=== PATIENT | male | born 1965 | race Caucasian/White ===

== ENCOUNTER 2016-05-18 21:34 | Observation (INO) ==
[2016-05-18] MEDS ORDERED: 0.9 % Sodium Chloride 1,000 ML IVC ONE (21:52)
[2016-05-18 22:27] LABS: Basophils % 0.5 %; Eosinophils # 0.1 K/mcL (0.0-0.6); Eosinophils % 1.1 %; Hematocrit 41.9 % (37.5-50.1); Hemoglobin 14.1 g/dL (12.9-16.9); Immature Granulocytes % 0.3 % (0-4); Lymphocytes # 1.5 K/mcL (0.6-4.6); Lymphocytes % 19.1 %; Mean Corpuscular HGB Conc 33.7 g/dL (31.6-35.5); Mean Corpuscular Volume 92.1 fL (83.0-100.0); Mean Platelet Volume 11.4 fL (9.4-12.4); Monocytes # 0.6 K/mcL (0.0-1.3); Monocytes % 7.1 %; Neutrophils # 5.7 K/mcL (1.6-8.9); Platelet Count 189 K/mcL (140-400); Red Blood Count 4.55 M/mcL (4.19-5.50); Red Cell Distribution Width 12.6 % (11.5-14.5); Segmented Neutrophils % 71.9 %
[2016-05-18 22:31] LABS: INR 1.2; Prothrombin Time 12.5 Seconds (9.4-12.1)
[2016-05-18 22:34] LABS: Activated Partial Thrombo Time 28.9 Seconds (26.0-36.0)
[2016-05-18 22:40] LABS: BUN/Creatinine Ratio 22 (6-26); Blood Urea Nitrogen 17 mg/dL (8-26); Calcium 9.3 mg/dL (8.6-10.8); Carbon Dioxide 24 mEq/L (19-29); Chloride 106 mEq/L (98-109); Glucose 131 mg/dL (70-99); Osmolality,Calculated 299 (280-300); Potassium 4.1 mEq/L (3.5-4.5); Sodium 143 mEq/L (136-145); eGFR For African Americans > 60 (> 60); eGFR For Non-African Americans > 60 (> 60)
--- NOTE | 2016-05-19 00:35 | Emergency Department Note ---
Disposition Clinical Impression: Syncope Disposition: Admitted As Inpatient Referrals: Vik Marks Jr, MD [Primary Care Provider] - Forms: ED Satisfaction Letter Dizziness HPI - General Chief Complaint: ED Dizziness Stated Complaint: numbness in right side/light head ? Time Seen by Provider: 05/18/16 21:47 Source: patient, family Limitations: no limitations Nursing Notes Reviewed: Yes Vital Signs Reviewed: Yes - History of Present Illness HPI Narrative: 50-year-old male who presents with concern for syncope. He apparently was feeling quite well today and went to the gym this evening. He left the gym and went to the grocery store. He had some weakness in his upper extremities and some tingling in ultimate had a syncopal event. He does report a family history of aneurysms but has been evaluated with MRI and ruled out for aneurysms. He has mild headache at this time. He had no weakness following his syncope. He denies fever or chills. He denies sick or ill contacts. His vital signs are stable on arrival. He denied chest pain. - Related Data Allergies Allergy/AdvReac Type Severity Reaction Status Date / Time No Known Allergies Allergy Verified 05/18/16 21:45 All systems ED: reviewed and negative except as stated. Past Medical History - Past Medical History Medical history: Reports: no medical history Psychiatric history: Reports: no psych history - Social History Smoking Status: Never smoker Smokeless Tobacco Status: No Alcohol use: Reports: occasionally Drug use: Reports: none Physical Exam Alert and oriented in no acute distress Blue [place] warm and dry TMs clear bilaterally, extraocular muscle movements are normal, scleral icterus is absent Oropharynx is clear mucous members are moist Cardiovascular exam shows no murmur, rub, gallop Pulmonary exam shows clear lung sounds bilaterally no rales, rhonchi, wheezing Abdominal exam shows a soft and nontender abdomen Extremities are well perfused without clubbing, cyanosis, edema Neurologic exam shows cranial nerves II through XII grossly intact without any focal deficit - General Limitations: no limitations General appearance: alert, in no apparent distress Course Vital Signs Temperature 98.3 F 05/18/16 21:45 Pulse Rate 83 05/18/16 21:45 Respiratory Rate 16 05/18/16 21:45 Blood Pressure 148/97 05/18/16 21:45 O2 Sat by Pulse Oximetry 99 05/18/16 21:45 Temperature 98.3 F 05/18/16 21:45 Pulse Rate 83 05/18/16 21:45 Respiratory Rate 16 05/18/16 21:45 Blood Pressure 148/97 05/18/16 21:45 O2 Sat by Pulse Oximetry 99 05/18/16 21:45 Oxygen Delivery Oxygen Delivery Room Air Dizziness - MDM Narrative Medical decision making narrative: 50-year-old male with syncopal event. CT of the brain shows no acute findings. I would suspect if he had a subarachnoid hemorrhage that this would have showed up on a noncontrast CT given that he was in the first 6 hours of onset of symptoms. His headache has improved since the incident and he is only requesting Tylenol this time. He has no focal neurological deficits. His NIH score is 0. I do not suspect a stroke at this time. EKG shows normal sinus rhythm with normal intervals. Cardiac biomarkers are negative. Plan for admission for ACS rule out, evaluation of syncope. Stable at time of admission. - Medical Records Medical records reviewed: Yes I reviewed the patient's medical records. - Lab Data Lab results reviewed: Yes I reviewed the patient's lab results. Result diagrams: 05/18/16 22:18 05/18/16 22:18 Lab Results 05/18/16 05/18/16 05/18/16 Range/Units 22:18 22:18 22:18 WBC 7.9 (4.3-11.1) K/mcL RBC 4.55 (4.19-5.50) M/mcL Hgb 14.1 (12.9-16.9) g/dL Hct 41.9 (37.5-50.1) % MCV 92.1 (83.0-100.0) fL MCH 31.0 (28.0-33.3) pg MCHC 33.7 (31.6-35.5) g/dL RDW 12.6 (11.5-14.5) % Plt Count 189 (140-400) K/mcL MPV 11.4 (9.4-12.4) fL Immature Gran % 0.3 (0-4) % Seg Neutrophils % 71.9 % Lymphocytes % 19.1 % Monocytes % 7.1 % Eosinophils % 1.1 % Basophils % 0.5 % Neutrophils # 5.7 (1.6-8.9) K/mcL Lymphocytes # 1.5 (0.6-4.6) K/mcL Monocytes # 0.6 (0.0-1.3) K/mcL Eosinophils # 0.1 (0.0-0.6) K/mcL Basophils # 0.0 (0.0-0.2) K/mcL PT 12.5 H (9.4-12.1) Seconds INR 1.2 APTT 28.9 (26.0-36.0) Seconds Sodium 143 (136-145) mEq/L Potassium 4.1 (3.5-4.5) mEq/L Chloride 106 (98-109) mEq/L Carbon Dioxide 24 (19-29) mEq/L BUN 17 (8-26) mg/dL Creatinine 0.78 (0.72-1.25) mg/dL Est GFR ( Amer) > 60 (> 60) Est GFR (Non-Af Amer) > 60 (> 60) BUN/Creatinine Ratio 22 (6-26) Glucose 131 H (70-99) mg/dL Calculated Osmolality 299 (280-300) Calcium 9.3 (8.6-10.8) mg/dL Troponin I (0-0.03) ng/mL 05/18/16 Range/Units 22:18 WBC (4.3-11.1) K/mcL RBC (4.19-5.50) M/mcL Hgb (12.9-16.9) g/dL Hct (37.5-50.1) % MCV (83.0-100.0) fL MCH (28.0-33.3) pg MCHC (31.6-35.5) g/dL RDW (11.5-14.5) % Plt Count (140-400) K/mcL MPV (9.4-12.4) fL Immature Gran % (0-4) % Seg Neutrophils % % Lymphocytes % % Monocytes % % Eosinophils % % Basophils % % Neutrophils # (1.6-8.9) K/mcL Lymphocytes # (0.6-4.6) K/mcL Monocytes # (0.0-1.3) K/mcL Eosinophils # (0.0-0.6) K/mcL Basophils # (0.0-0.2) K/mcL PT (9.4-12.1) Seconds INR APTT (26.0-36.0) Seconds Sodium (136-145) mEq/L Potassium (3.5-4.5) mEq/L Chloride (98-109) mEq/L Carbon Dioxide (19-29) mEq/L BUN (8-26) mg/dL Creatinine (0.72-1.25) mg/dL Est GFR ( Amer) (> 60) Est GFR (Non-Af Amer) (> 60) BUN/Creatinine Ratio (6-26) Glucose (70-99) mg/dL Calculated Osmolality (280-300) Calcium (8.6-10.8) mg/dL Troponin I 0.01 (0-0.03) ng/mL - EKG Data EKG attestation: Yes I reviewed and interpreted this EKG. EKG results narrative: Normal sinus rhythm, rate 72 bpm, normal axis, normal intervals, non-specific ST segment changes
[2016-05-19] MEDS ORDERED: MOM Conc 10 ML UD.LIQ PO PRN (07:33)
[2016-05-19] MEDS ORDERED: Acetaminophen 325 MG TABLET PO PRN (07:33)
[2016-05-19] MEDS ORDERED: Naloxone 0.4 MG/ML INJ IVP PRN (07:33)
[2016-05-19] MEDS ORDERED: Ondansetron 4 MG/2 ML VIAL IVP PRN (07:33)
--- NOTE | 2016-05-19 07:42 | Internal Med History&Physical ---
<Toña Vieira Aneesh - Last Filed: 05/19/16 09:36> Date of Encounter: 05/19/16 Time of Encounter: 07:20 Assessment and Plan (1) Pre-syncope Current visit: Yes Status: Acute Pt had episode of pre-syncope yesterday afternoon at grocery store. Pt did not lose consciousness or fall. Reports diaphoresis, lightheadedness, and shira arm weakness and tingling at time of episode, occipital CORREA after and "feeling floaty " for the rest of the evening. VS have been WNL for entire visit, EKG is NSR, rate 72, and initial 2 troponins have been WNL. Pt is asymptomatic at this time and is neurologically intact with steady gait. Pt had head MRA in July, for his family history of aneurysm, it was negative for intracranial or neck abnormality, as was head CT this visit. Will continue to monitor. Continuous cardiac monitoring Monitor labs Troponin X1 Stress test Orthostatic VS A1c Up with assist prn Internal Medicine - H&P: HPI Chief complaint: Lightheaded, weakness Admitted From: Home Plans for Post Hospital Care: Home History of present illness: Mr. Fairbanks is a 50 year old male with no medical history other than GERD, which he has controlled with diet. His family history is significant for cerebral aneurysm (sister), and MVP (brother). He worked out in his basement gym, had a smoothie, then went to the grocery store. Pt states that he became lightheaded, staggered, became diaphoretic, and had shira arm weakness and tingling. Pt asked employee to help him sit, he had a glass of water, and in about 25 min felt well enough to get up and go home. Pt did not lose consciousness or fall. Reports occipital CORREA after episode, without vision changes or dizziness, n/v, and "felt floaty" for most of the evening. He denies any use of OTC drugs or supplements, and only has 2 cups of coffee daily. Pt denies any symptoms at this time and states that he would like to go home today. Past Med Surg Social Fam HX - Past Medical History Medical history: no medical history Psychiatric history: no psych history - Past Surgical History Surgical History: no surgical history - Social History Smoking Status: Never smoker Smokeless Tobacco Status: No Alcohol use: occasionally Drug use: none - Family History Mother Hx Family Cardiac Disorders: Yes (Brain aneurysm) Hx Family Respiratory Disorders: Yes (COPD) Father Cause of : Kidney Cancer Internal Medicine - H&P: Meds Allergies No Known Allergies Allergy (Verified 05/18/16 21:45) All Systems PM: A 10-system review of systems was performed and is negative for pertinent findings except as documented above in the HPI. - Constitutional Constitutional: weakness, no chills, no fever(s), no falls - EENT Eyes: no blurry vision, no other visual disturbances Ears: no decreased hearing - Cardiovascular Cardiovascular ROS IM: diaphoresis, lightheadedness, no chest pain, no dyspnea, no palpitations, no syncope Additional comments: Pt states that he was taking deep breaths to try to avoid passing out, but did not feel SOB. - Respiratory Respiratory: no cough, no dyspnea on exertion, no wheezing, no chest congestion - Gastrointestinal Gastrointestinal: no diarrhea, no nausea, no vomiting - Musculoskeletal Musculoskeletal ROS IM: muscle weakness, tingling - Neurological Neurological ROS: headache(s), no loss of vision - Constitutional Vitals: Temp Pulse Resp BP Pulse Ox 97.9 F 66 16 118/72 97 05/19/16 07:00 05/19/16 07:00 05/19/16 07:00 05/19/16 07:00 05/19/16 07:00 General appearance: Present: cooperative, A&O X 3, pleasant - Head Head exam: Present: normal inspection - Eye Eye exam: Present: normal appearance, PERRL, conjuntiva pink - ENT ENT exam: Present: mucous membranes moist - Respiratory Respiratory exam: Present: CTAB. Absent: chest wall tenderness, respiratory distress, rhonchi, wheezes - Cardiovascular Cardiovascular exam: Present: RRR, +S1, +S2. Absent: JVD - GI/Abdominal GI/Abdominal exam: Present: normal bowel sounds, soft. Absent: tenderness - Extremities Exam Extremities exam: Present: full ROM, normal capillary refill, normal inspection , warm, radial pulses palpable and symetrical. Absent: pedal edema - Neurological Exam Neurological exam: Present: alert, oriented X3, strengths equal and symetr throughout. Absent: facial droop, speech deficit Internal Med - H&P Results - Labs CBC & Chem 7: 05/18/16 22:18 05/18/16 22:18 Labs: Cardiac Enzymes 05/19/16 Range/Units 06:24 Troponin I 0.00 (0-0.03) ng/mL - EKG Data EKG shows normal: sinus rhythm - EKG Data Prior EKG available for review: no Interpretation IM: normal EKG EKG comments: 05/19/16 08:58 EKG NSR, rate 72, NE interval 173ms, QRS 104ms, QT 367ms. - VTE Reasons for not Prescribing Prophylaxis: Treatment not Indicated - Low risk for VTE <Leigha Gurrola - Last Filed: 05/19/16 10:30> Date of Encounter: 05/19/16 Internal Medicine - H&P: HPI History of present illness: Mr. Fairbanks is a 50 year old male All Systems PM: A 10-system review of systems was performed and is negative for pertinent findings except as documented above in the HPI. - Constitutional Vitals: Temp Pulse Resp BP Pulse Ox 97.9 F 67 16 116/75 97 05/19/16 07:00 05/19/16 08:17 05/19/16 07:00 05/19/16 08:17 05/19/16 07:00 Internal Med - H&P Results - Labs CBC & Chem 7: 05/18/16 22:18 05/18/16 22:18 Labs: Cardiac Enzymes 05/19/16 Range/Units 06:24 Troponin I 0.00 (0-0.03) ng/mL - Attending Attestation I examined this patient and reviewed laboratory, imaging and all diagnostic data. My medical decision-making was reviewed with JIMMY Vieira. I agree with the documented findings, disposition and treatment plan as described above. Patient had a negative CT head, and an intact neuro examination. Given history of Dyspnea on exertion, I will order a stress test.
[2016-05-19 08:46] LABS: Hemoglobin A1C 5.1 %
[2016-05-19 15:24] VITALS: BP 120/71
--- NOTE | 2016-05-19 16:19 | Discharge Summary ---
Date of Encounter: 05/19/16 Time of Encounter: 16:17 - Discharge Diagnosis (1) Pre-syncope Priority: Primary Status: Acute (2) Dyspnea on exertion Priority: Primary Status: Acute - Discharge Medications Prescriptions: Aspirin 81 mg PO DAILY #30 tab.chew Home Medications: Aspirin 81 mg PO DAILY #30 tab.chew 05/19/16 [Rx] Ketoconazole Shampoo [Nizoral Shampoo] 1 appl TP 3XW 05/19/16 [History] Loratadine [Claritin] 10 mg PO DAILY 05/19/16 [History] Allergies/Adverse Reactions: Allergies No Known Allergies Allergy (Verified 05/18/16 21:45) Procedures/tests Complete & Pending: Procedures Performed prior 72 hours Category Date Time Status NM nicole perf SPECT multi [NM] Routine Exams 05/20/16 07:00 Ordered SP exercise nuclear stress Routine Y 05/20/16 07:30 Ordered Date of admission: 05/19/16 00:45 Primary care physician: Vik Marks Jr, MD - Patient Status Disposition: Home, Self-Care Condition: Good Functional capacity at discharge: independent ambulation Overall status at discharge: patient is back to baseline - Ambulatory Orders Ambulatory Orders: SP exercise nuclear stress Time Frame: 05/19/16, Facility: [facility], Location: Cardiopulmonary Svc - Discharge Instructions Instructions: Aspirin (By mouth), Cardiac Stress Test (DC), Cardiac Stress Test (GEN) Follow Up With: Vik Marks Jr, MD [Primary Care Provider] - 05/22/16 10:40 am () - Diet and Activity Activity: resume usual activities as tolerated Diet: regular diet Hospital course: Mr. Fairbanks is a 50 year old male with no medical history other than GERD, which he has controlled with diet. His family history is significant for cerebral aneurysm (sister), and MVP (brother). He presented with lightheadedness, bilateral arm weakness and tingliness. no chest pain. reports SOB at exertion for the past few days. troponins were negative x2. EKG showed no acute ischemic changes. CXR was negative. He remained asymptomatic. He was ambulating and eating well. No telemetry events during the hospitalization. Patient was eager to go home. I recommended him a stress test but because he drank coffee he could not do it today. Given his good clinical condition, I schedule a stress test as outpatient tomorrow morning. PLAN: A stress test in the morning. f/u with primary care physician in one week. - Time Spent with Patient Total time spent providing and/or coordinating discharge services: - Constitutional Vitals: Temp Pulse Resp BP Pulse Ox 97.9 F 77 14 120/71 96 05/19/16 15:23 05/19/16 15:23 05/19/16 15:23 05/19/16 15:23 05/19/16 15:23 General appearance: Present: cooperative, A&O X 3, pleasant - VTE Reasons for not Prescribing Prophylaxis: Treatment not Indicated - Low risk for VTE
--- NOTE | 2016-05-19 21:27 | Electrocardiograph Report ---
[facility] Test Date: 2016-05-18 Pat Name: Antonio Fairbanks Department: 104 Room: 3B38 Gender: M [employer]: : 1965 Requested By: Campos Anders Order Number: [id number] Reading MD: Shanika Gimenez Measurements Intervals [place] Rate: 72 P: 37 [place]: 173 QRS: 66 QRSD: 104 T: 25 QT: 367 QTc: 391 Interpretive Statements SINUS RHYTHM Electronically Signed On 05-19-2016 21:26:03 EST by Shanika Gimenez
== END 2016-05-19 16:44 | disposition home or self-care (01) ==
LOC: 3BNU 21:34 → EMEROO 21:34 → 3BNU 05-19 00:50
PROVIDERS: ADMIT Internal Medicine; ATTEND Nurse Practitioner Family